=== PATIENT | female | born 2000 | race Caucasian/White ===

== ENCOUNTER 2019-08-12 06:26 | Emergency (ER) | payer MEDICAID ==
[~2019-08-12] VITALS: Ht 167.6 cm; Wt 86.2 kg
[2019-08-12 06:29] VITALS: BP_SYST 146
[2019-08-12] MEDS ORDERED: DIPH-TET-PERTUS Vaccine 0.5 ML VIAL (ADACEL) I.M. ONE (06:45)
[2019-08-12] MEDS ORDERED: LIDOCAINE 1% 10 MG/ML, 20 ML MDV INJ ONE (06:45)
[2019-08-12 07:08] VITALS: BP_SYST 146
== END 2019-08-12 07:08 | disposition home or self-care (01) ==
LOC: SED 06:26
DX: S61.412A Laceration without foreign body of left hand, initial encounter (principal); W45.8XXA Other foreign body or object entering through skin, initial encounter; Y93.89 Activity, other specified; Y92.89 Other specified places as the place of occurrence of the external cause; Y99.8 Other external cause status
CPT/HCPCS: 12001; 90471; 90715; 99283; J2001